=== PATIENT | male | born 1935 | race Caucasian/White ===

== ENCOUNTER 2021-09-24 07:12 | Inpatient (IN) | payer MEDICARE ==
[2021-09-24] VITALS (63 sets, daily range): BP systolic 86–141; BP diastolic 39–116
[~2021-09-24] VITALS: Ht 180.3 cm; Wt 85.0 kg
[~2021-09-24 07:12] MED LIST: ACETIC ACID2 % AD; AEROCHAMBER PLUS IN; ALBUTEROL1 IN; BACTRIM DS1 TAB OR; BENADRYL 50MG C50 MG OR; DARVOCET N-100100 - OR; KLOR-CON M1010 MEQ PO; LASIX20 MG PO; NAPROSYN500 MG OR; NEBULIZE1 IN; OMEPRAZOLE20 MG PO; PROVENTIL HFA IN; TRIAMCINOLON0.5 % EX; [UNRECOGNIZED DRUG - OTHER] EX
[2021-09-24 08:03] LABS: HEMATOCRIT 22.4 % (39.0-50.0); HEMOGLOBIN 7.5 g/dl (14.0-18.0); MEAN CELL VOLUME 131.8 fL CALC (80.0-100.0); MEAN CORPUSCULAR HGB 44.1 pG CALC (26.0-32.0); MEAN CORPUSCULAR HGB CONC 33.5 g/dL CAL (32.0-36.0); NEUT# 5.4 thou/uL (1.82-7.42); RED BLOOD COUNT 1.7 mill/uL (4.70-6.10); RED CELL DISTRI WIDTH 16.3 % (11.5-15.5)
[2021-09-24 08:08] LABS: URINE BLOOD DIPSTICK NEGATIVE (NEGATIVE); URINE COLOR YELLOW; URINE GLUCOSE - DIPSTICK NEGATIVE (NEGATIVE); URINE KETONE NEGATIVE (NEGATIVE); URINE LEUK ESTERASE NEGATIVE (NEGATIVE); URINE PROTEIN - DIPSTICK TRACE mg/dL (NEG-TRACE); URINE SPECIFIC GRAVITY 1.015
[2021-09-24 08:13] LABS: URINE BILIRUBIN - DIPSTICK SMALL (NEGATIVE); URINE NITRITE - DIPSTICK NEGATIVE (Negative)
[2021-09-24 08:27] LABS: ALBUMIN 3.3 g/dL (3.2-5.0); ALKALINE PHOSPHATASE 102 u/l (38-126); BUN 10 mg/dL (8-23); BUN/CREATININE RATIO 13 (12-20 (CALC)); CHLORIDE 99 mmol/l (95-108); CPK 29 u/l (52-200); CREATININE 0.8 mg/dL (0.7-1.3); GFR FOR AFR.AMER. > 60 ML/MIN (>=60 (CALC)); GFR OTHER RACES > 60 ML/MIN (>=60 (CALC)); LIPASE 39 u/l (23-300); MAGNESIUM 1.2 mg/dL (1.6-2.3); POTASSIUM 3.9 mmol/l (3.5-5.1); SGOT/AST 62 u/l (19-48); SODIUM 137 mmol/l (137-146); TOTAL PROTEIN 7.1 g/dL (6.3-8.2)
[2021-09-24 08:37] LABS: ANION GAP 21 (6-22 (CALC)); CARBON DIOXIDE 21 mmol/l (22-30)
[2021-09-24 08:42] LABS: INTERNATIONAL NORMALIZED RATIO 1.1 RATIO (0.7-1.3); PROTHROMBIN TIME 11.8 SECONDS (9.0-12.5)
[2021-09-24 13:51] LABS: URINE BILIRUBIN - DIPSTICK SMALL (NEGATIVE); URINE BLOOD DIPSTICK TRACE-INTACT (NEGATIVE); URINE CLARITY HAZY; URINE COLOR AMBER; URINE GLUCOSE - DIPSTICK NEGATIVE (NEGATIVE); URINE KETONE TRACE mg/dL (NEGATIVE); URINE LEUK ESTERASE NEGATIVE (Negative); URINE NITRITE - DIPSTICK POSITIVE (Negative); URINE PROTEIN - DIPSTICK 100 mg/dL (NEG-TRACE); URINE SPECIFIC GRAVITY >=1.030
[2021-09-24 13:57] LABS: URINE RBC 0-2 RBC/hpf (0-5)
[2021-09-24 13:58] LABS: URINE AMORPH SEDIMENT FEW hpf (NONE-FER)
[2021-09-25] VITALS (95 sets, daily range): BP systolic 98–144; BP diastolic 45–95
[2021-09-25 05:54] LABS: IMMATURE GRANULOCYTES 0.9 % (0.0-5.0); MEAN CELL VOLUME 130.4 fL CALC (80.0-100.0); MEAN CORPUSCULAR HGB 43.2 pG CALC (26.0-32.0); MEAN CORPUSCULAR HGB CONC 33.1 g/dL CAL (32.0-36.0); NEUT# 5.04 thou/uL (1.82-7.42); RED BLOOD COUNT 1.25 mill/uL (4.70-6.10); RED CELL DISTRI WIDTH 16.5 % (11.5-15.5)
[2021-09-25 05:57] LABS: ALKALINE PHOSPHATASE 63 u/l (38-126); BUN 12 mg/dL (8-23); BUN/CREATININE RATIO 20 (12-20 (CALC)); CHLORIDE 108 mmol/l (95-108); CREATININE 0.6 mg/dL (0.7-1.3); GFR FOR AFR.AMER. > 60 ML/MIN (>=60 (CALC)); GFR OTHER RACES > 60 ML/MIN (>=60 (CALC)); POTASSIUM 3.6 mmol/l (3.5-5.1); SGOT/AST 40 u/l (19-48); SODIUM 138 mmol/l (137-146)
[2021-09-25 06:03] LABS: ALBUMIN 2.2 g/dL (3.2-5.0); ANION GAP 8 (6-22 (CALC)); BILIRUBIN, TOTAL 0.9 mg/dL (0.0-1.4); CARBON DIOXIDE 26 mmol/l (22-30); TOTAL PROTEIN 5.2 g/dL (6.3-8.2)
[2021-09-25 06:42] LABS: HEMOGLOBIN 5.4 g/dl (14.0-18.0)
[2021-09-25 06:44] LABS: HEMATOCRIT 16.3 % (39.0-50.0)
[2021-09-25 16:56] LABS: HEMATOCRIT 22.3 % (39.0-50.0); HEMOGLOBIN 7.5 g/dl (14.0-18.0)
[2021-09-26] VITALS (79 sets, daily range): BP systolic 98–155; BP diastolic 47–89
[2021-09-26 05:30] LABS: HEMATOCRIT 22.9 % (39.0-50.0); HEMOGLOBIN 7.8 g/dl (14.0-18.0); MEAN CORPUSCULAR HGB 38.4 pG CALC (26.0-32.0); MEAN CORPUSCULAR HGB CONC 34.1 g/dL CAL (32.0-36.0); RED BLOOD COUNT 2.03 mill/uL (4.70-6.10)
[2021-09-26 05:31] LABS: MEAN CELL VOLUME 112.8 fL CALC (80.0-100.0)
[2021-09-26 05:36] LABS: ANION GAP 8 (6-22 (CALC)); BUN 11 mg/dL (8-23); BUN/CREATININE RATIO 24 (12-20 (CALC)); CARBON DIOXIDE 25 mmol/l (22-30); CHLORIDE 107 mmol/l (95-108); CREATININE 0.5 mg/dL (0.7-1.3); GFR FOR AFR.AMER. > 60 ML/MIN (>=60 (CALC)); GFR OTHER RACES > 60 ML/MIN (>=60 (CALC)); MAGNESIUM 1.8 mg/dL (1.6-2.3); POTASSIUM 3.6 mmol/l (3.5-5.1); SODIUM 136 mmol/l (137-146)
[2021-09-27] VITALS (36 sets, daily range): BP systolic 109–162; BP diastolic 55–109
[2021-09-27 05:03] LABS: HEMATOCRIT 20.6 % (39.0-50.0); MEAN CELL VOLUME 113.8 fL CALC (80.0-100.0); MEAN CORPUSCULAR HGB 38.7 pG CALC (26.0-32.0); RED BLOOD COUNT 1.81 mill/uL (4.70-6.10)
[2021-09-27 05:14] LABS: ANION GAP 8 (6-22 (CALC)); BUN 8 mg/dL (8-23); BUN/CREATININE RATIO 18 (12-20 (CALC)); CARBON DIOXIDE 24 mmol/l (22-30); CHLORIDE 107 mmol/l (95-108); CREATININE 0.4 mg/dL (0.7-1.3); GFR FOR AFR.AMER. > 60 ML/MIN (>=60 (CALC)); GFR OTHER RACES > 60 ML/MIN (>=60 (CALC)); MAGNESIUM 1.7 mg/dL (1.6-2.3); POTASSIUM 3.9 mmol/l (3.5-5.1); SODIUM 135 mmol/l (137-146)
[2021-09-28] VITALS: BP 137/78
[2021-09-28 00:15] VITALS: BP 137/78
[2021-09-28 04:03] VITALS: BP 140/80
[2021-09-28 05:32] LABS: HEMATOCRIT 21.8 % (39.0-50.0); HEMOGLOBIN 7.3 g/dl (14.0-18.0); MEAN CELL VOLUME 114.7 fL CALC (80.0-100.0); MEAN CORPUSCULAR HGB 38.4 pG CALC (26.0-32.0); MEAN CORPUSCULAR HGB CONC 33.5 g/dL CAL (32.0-36.0); RED BLOOD COUNT 1.9 mill/uL (4.70-6.10)
[2021-09-28 05:57] LABS: ANION GAP 9 (6-22 (CALC)); BUN 8 mg/dL (8-23); BUN/CREATININE RATIO 20 (12-20 (CALC)); CARBON DIOXIDE 25 mmol/l (22-30); CHLORIDE 107 mmol/l (95-108); CREATININE 0.4 mg/dL (0.7-1.3); GFR FOR AFR.AMER. > 60 ML/MIN (>=60 (CALC)); GFR OTHER RACES > 60 ML/MIN (>=60 (CALC)); MAGNESIUM 1.9 mg/dL (1.6-2.3); POTASSIUM 3.4 mmol/l (3.5-5.1); SODIUM 137 mmol/l (137-146)
[2021-09-28 07:18] VITALS: BP 121/68
[2021-09-28 10:27] VITALS: BP 146/49
[2021-09-28] MEDS ORDERED: AZITHROMYCIN500 MG PO (14:02)
[2021-09-28] MEDS ORDERED: MEDDOSEPAK PO (14:02)
[2021-09-28] MEDS ORDERED: OMNICEF300 M1 PO (14:02)
[2021-09-28] MEDS ORDERED: IRON (FERROUS S50 MG PO (14:04)
[2021-09-28 15:21] VITALS: BP 126/65
== END 2021-09-28 18:00 | DRG 194 ==
LOC: ED 07:12 → ED-I 08:50 → MS2 09:05 → ICU 09:05 → ED 09:05 → ICU 09:06 → MS2 09-27 18:04
PROVIDERS: Family Medicine; Hospitalist; ADMIT Internal Medicine; ATTEND Internal Medicine
PROC: 0T9B70Z Drainage of Bladder with Drainage Device, Via Natural or Artificial Opening (ICD-10-PCS; 2021-09-24)
PROC: 30233N1 Transfusion of Nonautologous Red Blood Cells into Peripheral Vein, Percutaneous Approach (ICD-10-PCS; principal; 2021-09-25)
PROC: 30233N1 Transfusion of Nonautologous Red Blood Cells into Peripheral Vein, Percutaneous Approach (ICD-10-PCS; 2021-09-25)
DX: J18.9 Pneumonia, unspecified organism (principal); J44.0 Chronic obstructive pulmonary disease with (acute) lower respiratory infection; J44.1 Chronic obstructive pulmonary disease with (acute) exacerbation; D64.9 Anemia, unspecified; I10 Essential (primary) hypertension; F10.20 Alcohol dependence, uncomplicated; F17.200 Nicotine dependence, unspecified, uncomplicated; Z91.81 History of falling; Z20.822 Contact with and (suspected) exposure to COVID-19
CPT/HCPCS: J1756; J3420; J3475; P9016; S0164

== ENCOUNTER 2021-09-30 19:58 | Emergency (ER) | payer MEDICARE ==
[~2021-09-30] VITALS: Ht 180.3 cm; Wt 90.9 kg
[~2021-09-30 19:58] MED LIST changes: +AZITHROMYCIN500 MG PO; +IRON (FERROUS S50 MG PO; +MEDDOSEPAK PO; +OMNICEF300 M1 PO
[2021-09-30 20:33] LABS: URINE BILIRUBIN - DIPSTICK NEGATIVE (NEGATIVE); URINE BLOOD DIPSTICK SMALL (NEGATIVE); URINE COLOR YELLOW; URINE GLUCOSE - DIPSTICK NEGATIVE (NEGATIVE); URINE KETONE NEGATIVE (NEGATIVE); URINE LEUK ESTERASE NEGATIVE (NEGATIVE); URINE PROTEIN - DIPSTICK NEGATIVE (NEG-TRACE); URINE SPECIFIC GRAVITY 1.015; URINE UROBILINOGEN - DIPSTICK 0.2 E.U./dL (0.2)
[2021-09-30 20:34] LABS: HEMATOCRIT 25.9 % (39.0-50.0); HEMOGLOBIN 8.2 g/dl (14.0-18.0); IMMATURE GRANULOCYTES 2.2 % (0.0-5.0); MEAN CELL VOLUME 116.1 fL CALC (80.0-100.0); MEAN CORPUSCULAR HGB 36.8 pG CALC (26.0-32.0); MEAN CORPUSCULAR HGB CONC 31.7 g/dL CAL (32.0-36.0); NEUT# 4.49 thou/uL (1.82-7.42); RED BLOOD COUNT 2.23 mill/uL (4.70-6.10); RED CELL DISTRI WIDTH 23.4 % (11.5-15.5)
[2021-09-30 20:41] LABS: URINE NITRITE - DIPSTICK NEGATIVE (Negative)
[2021-09-30 20:53] LABS: ALKALINE PHOSPHATASE 84 u/l (38-126); ANION GAP 12 (6-22 (CALC)); BILIRUBIN, TOTAL 0.7 mg/dL (0.0-1.4); BUN 6 mg/dL (8-23); BUN/CREATININE RATIO 11 (12-20 (CALC)); CARBON DIOXIDE 26 mmol/l (22-30); CHLORIDE 104 mmol/l (95-108); CREATININE 0.5 mg/dL (0.7-1.3); GFR FOR AFR.AMER. > 60 ML/MIN (>=60 (CALC)); GFR OTHER RACES > 60 ML/MIN (>=60 (CALC)); POTASSIUM 3.7 mmol/l (3.5-5.1); SODIUM 139 mmol/l (137-146)
[2021-09-30 20:54] LABS: ALBUMIN 3.3 g/dL (3.2-5.0); SGOT/AST 114 u/l (19-48); TOTAL PROTEIN 6.8 g/dL (6.3-8.2)
[2021-09-30 21:05] LABS: MYOGLOBIN 178 ng/mL (0 - 121)
[2021-09-30 21:42] VITALS: BP 154/85
== END 2021-09-30 22:00 | disposition home or self-care (01) ==
LOC: ED 19:58
PROVIDERS: Emergency Medicine
DX: R22.43 Localized swelling, mass and lump, lower limb, bilateral (principal); U07.1 COVID-19

== ENCOUNTER 2021-10-05 16:49 | Inpatient (IN) | payer MEDICARE ==
[2021-10-05] VITALS (10 sets, daily range): BP systolic 119–163; BP diastolic 72–88
[~2021-10-05] VITALS: Ht 180.3 cm; Wt 91.0 kg
[2021-10-05 17:39] LABS: HEMATOCRIT 29.1 % (39.0-50.0); HEMOGLOBIN 9.2 g/dl (14.0-18.0); IMMATURE GRANULOCYTES 0.3 % (0.0-5.0); MEAN CELL VOLUME 112.8 fL CALC (80.0-100.0); MEAN CORPUSCULAR HGB 35.7 pG CALC (26.0-32.0); MEAN CORPUSCULAR HGB CONC 31.6 g/dL CAL (32.0-36.0); NEUT# 6.42 thou/uL (1.82-7.42); RED BLOOD COUNT 2.58 mill/uL (4.70-6.10); RED CELL DISTRI WIDTH 20.7 % (11.5-15.5)
[2021-10-05 17:55] LABS: ALBUMIN 3.2 g/dL (3.2-5.0); ALKALINE PHOSPHATASE 84 u/l (38-126); ANION GAP 8 (6-22 (CALC)); BILIRUBIN, TOTAL 0.9 mg/dL (0.0-1.4); BUN 6 mg/dL (8-23); BUN/CREATININE RATIO 12 (12-20 (CALC)); CARBON DIOXIDE 27 mmol/l (22-30); CHLORIDE 96 mmol/l (95-108); CREATININE 0.5 mg/dL (0.7-1.3); GFR FOR AFR.AMER. > 60 ML/MIN (>=60 (CALC)); GFR OTHER RACES > 60 ML/MIN (>=60 (CALC)); SGOT/AST 68 u/l (19-48); TOTAL PROTEIN 6.8 g/dL (6.3-8.2)
[2021-10-05 17:56] LABS: SODIUM 127 mmol/l (137-146)
[2021-10-05 17:58] LABS: PROTHROMBIN TIME 10.5 SECONDS (9.0-12.5)
[2021-10-05 18:07] LABS: MYOGLOBIN 85 ng/mL (0 - 121)
[2021-10-05 20:19] LABS: URINE BILIRUBIN - DIPSTICK NEGATIVE (NEGATIVE); URINE BLOOD DIPSTICK NEGATIVE (NEGATIVE); URINE COLOR YELLOW; URINE GLUCOSE - DIPSTICK NEGATIVE (NEGATIVE); URINE KETONE NEGATIVE (NEGATIVE); URINE LEUK ESTERASE TRACE (NEGATIVE); URINE PROTEIN - DIPSTICK NEGATIVE (NEG-TRACE); URINE SPECIFIC GRAVITY 1.025; URINE UROBILINOGEN - DIPSTICK 0.2 E.U./dL (0.2)
[2021-10-05 20:24] LABS: URINE NITRITE - DIPSTICK NEGATIVE (Negative)
[2021-10-06] VITALS (11 sets, daily range): BP systolic 129–170; BP diastolic 65–107
[2021-10-06 05:32] LABS: HEMATOCRIT 32.7 % (39.0-50.0); HEMOGLOBIN 10.2 g/dl (14.0-18.0); IMMATURE GRANULOCYTES 1.1 % (0.0-5.0); MEAN CELL VOLUME 115.5 fL CALC (80.0-100.0); MEAN CORPUSCULAR HGB CONC 31.2 g/dL CAL (32.0-36.0); NEUT# 3.9 thou/uL (1.82-7.42); RED BLOOD COUNT 2.83 mill/uL (4.70-6.10); RED CELL DISTRI WIDTH 20.9 % (11.5-15.5)
[2021-10-06 05:38] LABS: ANION GAP 10 (6-22 (CALC)); BUN 6 mg/dL (8-23); BUN/CREATININE RATIO 15 (12-20 (CALC)); CALCULATED LDLCHOLESTEROL 65 mg/dL (62-129 (CALC)); CARBON DIOXIDE 24 mmol/l (22-30); CHLORIDE 101 mmol/l (95-108); CHOLESTEROL HDL RATIO 2.9 (<4.4 (CALC)); CREATININE 0.4 mg/dL (0.7-1.3); GFR FOR AFR.AMER. > 60 ML/MIN (>=60 (CALC)); GFR OTHER RACES > 60 ML/MIN (>=60 (CALC)); HDL CHOLESTEROL 41 mg/dL (>=40); MAGNESIUM 1.8 mg/dL (1.6-2.3); POTASSIUM 3.9 mmol/l (3.5-5.1); SODIUM 131 mmol/l (137-146); TOTAL CHOLESTEROL 122 mg/dl (0-199); TOTAL TRIGLYCERIDES 77 mg/dl (30-149); VLDL CHOLESTROL 15 mg/dl (0-38 (CALC))
[2021-10-06] MEDS ORDERED: OMNICEF300 MG PO (12:24)
[2021-10-07] VITALS (7 sets, daily range): BP systolic 133–153; BP diastolic 68–83
[2021-10-07 05:57] LABS: HEMATOCRIT 29.4 % (39.0-50.0); HEMOGLOBIN 9.3 g/dl (14.0-18.0); IMMATURE GRANULOCYTES 0.3 % (0.0-5.0); MEAN CELL VOLUME 112.2 fL CALC (80.0-100.0); MEAN CORPUSCULAR HGB 35.5 pG CALC (26.0-32.0); MEAN CORPUSCULAR HGB CONC 31.6 g/dL CAL (32.0-36.0); NEUT# 4.36 thou/uL (1.82-7.42); RED BLOOD COUNT 2.62 mill/uL (4.70-6.10); RED CELL DISTRI WIDTH 20.2 % (11.5-15.5)
[2021-10-07 06:10] LABS: ALBUMIN 2.7 g/dL (3.2-5.0); ALKALINE PHOSPHATASE 71 u/l (38-126); ANION GAP 8 (6-22 (CALC)); BILIRUBIN, TOTAL 0.5 mg/dL (0.0-1.4); BUN 8 mg/dL (8-23); BUN/CREATININE RATIO 18 (12-20 (CALC)); CARBON DIOXIDE 28 mmol/l (22-30); CHLORIDE 101 mmol/l (95-108); CREATININE 0.5 mg/dL (0.7-1.3); GFR FOR AFR.AMER. > 60 ML/MIN (>=60 (CALC)); GFR OTHER RACES > 60 ML/MIN (>=60 (CALC)); MAGNESIUM 1.7 mg/dL (1.6-2.3); POTASSIUM 3.6 mmol/l (3.5-5.1); SGOT/AST 48 u/l (19-48); SODIUM 134 mmol/l (137-146)
[2021-10-08 03:49] VITALS: BP 163/87
[2021-10-08 06:00] LABS: HEMATOCRIT 31.6 % (39.0-50.0); IMMATURE GRANULOCYTES 0.4 % (0.0-5.0); MEAN CELL VOLUME 112.9 fL CALC (80.0-100.0); MEAN CORPUSCULAR HGB 35.7 pG CALC (26.0-32.0); MEAN CORPUSCULAR HGB CONC 31.6 g/dL CAL (32.0-36.0); NEUT# 3.52 thou/uL (1.82-7.42); RED BLOOD COUNT 2.8 mill/uL (4.70-6.10); RED CELL DISTRI WIDTH 19.7 % (11.5-15.5)
[2021-10-08 06:18] LABS: ALBUMIN 2.7 g/dL (3.2-5.0); ALKALINE PHOSPHATASE 69 u/l (38-126); ANION GAP 7 (6-22 (CALC)); BILIRUBIN, TOTAL 0.5 mg/dL (0.0-1.4); BUN 6 mg/dL (8-23); BUN/CREATININE RATIO 12 (12-20 (CALC)); CARBON DIOXIDE 28 mmol/l (22-30); CHLORIDE 102 mmol/l (95-108); CREATININE 0.5 mg/dL (0.7-1.3); GFR FOR AFR.AMER. > 60 ML/MIN (>=60 (CALC)); GFR OTHER RACES > 60 ML/MIN (>=60 (CALC)); MAGNESIUM 1.6 mg/dL (1.6-2.3); POTASSIUM 3.8 mmol/l (3.5-5.1); SGOT/AST 61 u/l (19-48); SODIUM 134 mmol/l (137-146); TOTAL PROTEIN 5.9 g/dL (6.3-8.2)
[2021-10-08 07:10] VITALS: BP 140/79
[2021-10-08 14:03] VITALS: BP 140/79
[2021-10-08 18:58] VITALS: BP 136/80
[2021-10-08 23:16] VITALS: BP 141/75
[2021-10-09 04:05] VITALS: BP 165/91
[2021-10-09 05:11] LABS: HEMATOCRIT 30.6 % (39.0-50.0); HEMOGLOBIN 9.6 g/dl (14.0-18.0); IMMATURE GRANULOCYTES 0.2 % (0.0-5.0); MEAN CELL VOLUME 111.3 fL CALC (80.0-100.0); MEAN CORPUSCULAR HGB 34.9 pG CALC (26.0-32.0); MEAN CORPUSCULAR HGB CONC 31.4 g/dL CAL (32.0-36.0); NEUT# 3.05 thou/uL (1.82-7.42); RED BLOOD COUNT 2.75 mill/uL (4.70-6.10); RED CELL DISTRI WIDTH 19.4 % (11.5-15.5)
[2021-10-09 05:31] LABS: ANION GAP 6 (6-22 (CALC)); BUN 6 mg/dL (8-23); BUN/CREATININE RATIO 11 (12-20 (CALC)); CARBON DIOXIDE 30 mmol/l (22-30); CHLORIDE 100 mmol/l (95-108); CREATININE 0.5 mg/dL (0.7-1.3); GFR FOR AFR.AMER. > 60 ML/MIN (>=60 (CALC)); GFR OTHER RACES > 60 ML/MIN (>=60 (CALC)); MAGNESIUM 1.5 mg/dL (1.6-2.3); POTASSIUM 3.8 mmol/l (3.5-5.1); SODIUM 132 mmol/l (137-146)
[2021-10-09 06:28] VITALS: BP 158/89
[2021-10-09 08:00] VITALS: BP 158/89
[2021-10-09] MEDS ORDERED: DOXYCYCLINE100 MG PO (09:09)
[2021-10-09 16:28] VITALS: BP 158/89
[2021-10-13] MEDS ORDERED: LASIX20 MG PO (11:59)
[2021-10-13] MEDS ORDERED: KLOR-CON M1010 MEQ PO (11:59)
== END 2021-10-09 17:24 | disposition home health service (06) | DRG 190 ==
LOC: ED 16:49 → MS2 19:45
PROVIDERS: Internal Medicine; Nurse Practitioner; ADMIT Internal Medicine; ATTEND Internal Medicine
DX: J43.9 Emphysema, unspecified (principal); J15.9 Unspecified bacterial pneumonia; U07.1 COVID-19; J12.82 Pneumonia due to coronavirus disease 2019; E87.1 Hypo-osmolality and hyponatremia; R09.02 Hypoxemia; R19.5 Other fecal abnormalities; D64.9 Anemia, unspecified; F10.20 Alcohol dependence, uncomplicated; R60.9 Edema, unspecified; F17.200 Nicotine dependence, unspecified, uncomplicated; Z87.01 Personal history of pneumonia (recurrent)
CPT/HCPCS: J1650; Q9967; S0164

== ENCOUNTER 2021-11-16 19:25 | Emergency (ER) | payer MEDICARE ==
[~2021-11-16] VITALS: Ht 180.3 cm; Wt 79.0 kg
[2021-11-16] VITALS (16 sets, daily range): BP systolic 135–160; BP diastolic 77–94
[~2021-11-16 19:25] MED LIST changes: +DOXYCYCLINE100 MG PO; +OMNICEF300 MG PO; +SPIRIVA HANDIHALER IN
[2021-11-16 20:00] LABS: HEMATOCRIT 38.1 % (39.0-50.0); HEMOGLOBIN 11.6 g/dl (14.0-18.0); IMMATURE GRANULOCYTES 0.2 % (0.0-5.0); MEAN CELL VOLUME 100.3 fL CALC (80.0-100.0); MEAN CORPUSCULAR HGB 30.5 pG CALC (26.0-32.0); MEAN CORPUSCULAR HGB CONC 30.4 g/dL CAL (32.0-36.0); NEUT# 2.61 thou/uL (1.82-7.42); RED BLOOD COUNT 3.8 mill/uL (4.70-6.10); RED CELL DISTRI WIDTH 15.2 % (11.5-15.5)
[2021-11-16 20:12] LABS: ALBUMIN 3.1 g/dL (3.2-5.0); ALKALINE PHOSPHATASE 99 u/l (38-126); ANION GAP 8 (6-22 (CALC)); BILIRUBIN, TOTAL 0.4 mg/dL (0.0-1.4); BUN 10 mg/dL (8-23); BUN/CREATININE RATIO 15 (12-20 (CALC)); CARBON DIOXIDE 29 mmol/l (22-30); CHLORIDE 107 mmol/l (95-108); CPK < 20 u/l (52-200); CREATININE 0.7 mg/dL (0.7-1.3); GFR FOR AFR.AMER. > 60 ML/MIN (>=60 (CALC)); GFR OTHER RACES > 60 ML/MIN (>=60 (CALC)); POTASSIUM 3.9 mmol/l (3.5-5.1); SGOT/AST 37 u/l (19-48); SODIUM 139 mmol/l (137-146); TOTAL PROTEIN 6.6 g/dL (6.3-8.2)
[2021-11-17] VITALS: BP 148/81
[2021-11-17 00:17] VITALS: BP 194/152
[2021-11-17 00:31] VITALS: BP 159/97
[2021-11-17 01:13] VITALS: BP 159/97
== END 2021-11-17 00:52 | disposition short-term general hospital (02) ==
LOC: ED 19:25
PROVIDERS: Family Medicine
DX: S72.001A Fracture of unspecified part of neck of right femur, initial encounter for closed fracture (principal); S51.012A Laceration without foreign body of left elbow, initial encounter; J44.9 Chronic obstructive pulmonary disease, unspecified; F17.200 Nicotine dependence, unspecified, uncomplicated; W01.0XXA Fall on same level from slipping, tripping and stumbling without subsequent striking against object, initial encounter; Z20.822 Contact with and (suspected) exposure to COVID-19

== ENCOUNTER 2022-12-25 09:58 | Observation (INO) | payer MEDICARE ==
[~2022-12-25] VITALS: Ht 182.9 cm; Wt 76.3 kg
[~2022-12-25 09:58] MED LIST changes: +BETAMETH DIP0.053 EX; +IRON325 M1 PO; +PERCOCET 5/321 COMBO PO; +PREDNISONE10 MG PO; +[UNRECOGNIZED DRUG - OTHER] TOP
--- NOTE | 2022-12-25 09:58 | NUR ---
PT NEEDED ASSISTANCE OUT OF CAR, WHEELED BACK TO ER ROOM 15 VIA WHEELCHAIR
[2022-12-25 10:32] LABS: BASO% 0.3 % (0-3); EOS% 1.5 % (0-8); HEMATOCRIT 51.4 % (39.0-50.0); IMMATURE GRANULOCYTES 0.3 % (0.0-5.0); LYMPH% 21.1 % (15-41); MEAN CELL VOLUME 103.2 fL CALC (80.0-100.0); MEAN CORPUSCULAR HGB 36.1 pG CALC (26.0-32.0); MONO% 10.9 % (2-13); NEUT# 4.92 thou/uL (1.82-7.42); NEUT% 65.9 % (42-76); RED BLOOD COUNT 4.98 mill/uL (4.70-6.10); RED CELL DISTRI WIDTH 13.7 % (11.5-15.5)
[2022-12-25 10:44] LABS: ALKALINE PHOSPHATASE 83 u/l (38-126); ANION GAP 13 (6-22 (CALC)); BUN 13 mg/dL (8-23); BUN/CREATININE RATIO 14 (12-20 (CALC)); CARBON DIOXIDE 33 mmol/l (22-30); CHLORIDE 96 mmol/l (95-108); CREATININE 0.9 mg/dL (0.7-1.3); GFR FOR AFR.AMER. > 60 ML/MIN (>=60 (CALC)); GFR OTHER RACES > 60 ML/MIN (>=60 (CALC)); POTASSIUM 4.4 mmol/l (3.5-5.1); SGOT/AST 32 u/l (19-48); SODIUM 138 mmol/l (137-146)
[2022-12-25 10:47] LABS: ALBUMIN 4.5 g/dL (3.2-5.0); BILIRUBIN, TOTAL 1.9 mg/dL (0.2-1.3); TOTAL PROTEIN 9.1 g/dL (6.3-8.2)
--- NOTE | 2022-12-25 11:00 | NUR ---
IN ROOM FOR BLODD DRAW 2ND BC, CHARLIE NOTED, VSS, PT WATCHING TV AND HAS NO COMPLAINTS AT THIS TIME, CALL LIGHT IN REACH.
--- NOTE | 2022-12-25 12:00 | NUR ---
Reassessment of patient completed. No distress noted. PT SITTING UP IN BED WATCHING TV, NO COMPLAINTS, GIVEN MEAL TRAY, PT DECLINED AT THIS TIME LEFT TRAY AT BEDSIDE, ROCEPHIN I/V FINISHED, ZITHROMAX I/V STARTED, CALL LIGHT IN REACH.
--- NOTE | 2022-12-25 13:00 | NUR ---
Reassessment of patient completed. No distress noted. VSS, NO COMPLAINTS AT THIS TIME, WATCHING TV, CALL LIGHT IN REACH.
--- NOTE | 2022-12-25 14:19 | NUR ---
report to maikel liu.
--- NOTE | 2022-12-25 14:30 | NUR ---
PT TO [facility] ROOM 290 VIA STRETCHER, ON TELE # 8, ALL BELONGINGS SENT WITH PT AT TIME OF TRANSFER, FEMALE FRIEND AT BEDSIDE.
--- NOTE | 2022-12-25 14:45 | NUR ---
PT TO MED SURG FROM ER, REPORT RECIEVED FROM NURSE. PT ALERT AND ORIENTED X 3, PT HAS NO C/O PAIN AT THIS TIME. LUNGS WITH WHEEZING THROUGHOUT,PT HAS NON PRODUCTIVE COUGH AND SOME SHORTNESS OF BREATH AND LABORED BREATHING. PT WEARING O2 @ 2 LITERS VIA NC AND SATS @98%. PT ABD DISTENDED WITH ACTIVE BS STATES HIS LAST BM WAS 2 DAYS JAEL AND REPORTS THIS IS NORMAL FOR HIM. PT HAS SCALY, RED PATCHY SKIN TO BLE, BILAT HANDS, RIGHT HIP, ELBOWS AND LEFT LEG. PT AMBULATES WITH ONE ASSIST TO THE BATHROOM FOR TOILETING NEEDS. PT HAS CALL LIGHT WITHIN REACH AND ALL SAFETY MEASURES IN PLACE AT THIS TIME.
[2022-12-25 14:59] VITALS: BP 165/87
[2022-12-25 20:16] VITALS: BP 146/78
--- NOTE | 2022-12-25 20:30 | NUR ---
PTIENT SITTING UP IN BED AT THIS TIME WITH VISITOR AT BEDSIDE. PATIENT IS AWAKE WITH FRFEQUENT LOOSE NON-PRODUCTIVE COUGH. PATIENT IS AWAKE ALERT AND ORIENTEDX3. O2 VIA NASAL CANNULA APPLIED. LUNGS ARE DIMINISHED THROUGHOUT. TELE MONITOR IN PLACE WITH LAST READING SR-92. PATIENT C/O BACK AND CHEST PAIN JUWAN WHEN HE IS COUGHING. PATIENT ALSO STATES THAT HE IS HAVING LOOSE BLACK STOOLS. CALL PLACED TO DR. GONZALES-NEW ORDERS RECEIVED. PATIENT HAD MODERATE AMT OF BLACKISH/GREEN LIQUID STOOL. STOOL SPEC OBTAINED TO LAB AND WAS POSITIVE. STAT CBC AND CHEM PROFILE DRAWN. IVF NS HUNG AND INFUSING AT 100CC/HR. PROTONIX GTT HUNG AND INFUSING ORDERED AT 10CC/HR. BOTH INFUSING VIA LAC SITE.DENIES ANY DIFFICULTY WITH URINATION. NO PERIPHERAL EDEMA NOTED.
[2022-12-25 20:33] LABS: BASO% 0.1 % (0-3); HEMATOCRIT 48.3 % (39.0-50.0); IMMATURE GRANULOCYTES 0.2 % (0.0-5.0); LYMPH% 3.7 % (15-41); MEAN CELL VOLUME 101.9 fL CALC (80.0-100.0); MEAN CORPUSCULAR HGB 33.8 pG CALC (26.0-32.0); MEAN CORPUSCULAR HGB CONC 33.1 g/dL CAL (32.0-36.0); MONO% 1.8 % (2-13); NEUT# 8.9 thou/uL (1.82-7.42); NEUT% 94.2 % (42-76); RED BLOOD COUNT 4.74 mill/uL (4.70-6.10); RED CELL DISTRI WIDTH 13.4 % (11.5-15.5)
[2022-12-25 21:01] LABS: ALBUMIN 3.7 g/dL (3.2-5.0); ALKALINE PHOSPHATASE 112 u/l (38-126); ANION GAP 14 (6-22 (CALC)); BILIRUBIN, TOTAL 1.2 mg/dL (0.2-1.3); BUN 20 mg/dL (8-23); BUN/CREATININE RATIO 20 (12-20 (CALC)); CARBON DIOXIDE 25 mmol/l (22-30); CHLORIDE 99 mmol/l (95-108); GFR FOR AFR.AMER. > 60 ML/MIN (>=60 (CALC)); GFR OTHER RACES > 60 ML/MIN (>=60 (CALC)); POTASSIUM 4.4 mmol/l (3.5-5.1); SGOT/AST 31 u/l (19-48); SODIUM 134 mmol/l (137-146); TOTAL PROTEIN 7.3 g/dL (6.3-8.2)
--- NOTE | 2022-12-25 21:30 | NUR ---
PATIENT RESTING IN BED. MEDICATED FOR PAIN WITH TRAMADOL 50MG PO WITH SIP OF H2O. NICOTENE TRANSDERMAL PATCH APPLIED TO RIGHT UPPER ARM. PATIENT IS NOW NPO. BED ALARM IN PLACE FOR PATIENT SAFETY. CALL LIGHT IN REACH. WILL CONT TO MONITOR.
[2022-12-26] VITALS (7 sets, daily range): BP systolic 113–146; BP diastolic 51–76
--- NOTE | 2022-12-26 00:31 | NUR ---
PATIENT RESTING IN BED AT THIS TIME WITH O2 VIA NASAL CANNULA IN PLACE AT 2LPM. EYES ARE CLOSED AND RESPS ARE EVEN AND UNLABORED. IVF NS PATENT AND INFUSING VIA LAC SITE AT 100CC/HR. PROTONIX GTT PATENT AND INFUSING AT 10CC/HR VIA LAC SITE. TELE MONITOR IN PLACE. CALL LIGHT IN REACH. WILL CONT TO MONITOR.
--- NOTE | 2022-12-26 02:09 | NUR ---
PATIENT RESING IN BED WITH HOB ELEVATED AND EYES CLOSED. O2 VIA NASAL CANNULA IN PLACE. BREATHING IS LESS LABORED AT THIS TIME. IVF NS PATENT AND INFUSING AT 100CC/HR. PROTONIX GTT PATENT AND INFUSING AT 10CC/HR. TELE MONITOR IN PLACE. BED ALARM IN PLACE FOR PATIENT SAFETY. CALL LIGHT IN REACH, WILL CONT TO MONITOR.
--- NOTE | 2022-12-26 04:34 | NUR ---
PATIENT BED ALRM GOING OFF-RESPONDED TO THE ROOM AND FOUND PATIENT SITTING ON THE SIDE OF THE BED. ALERT AND ORIENTEDX3. PATIENT STILL UNSTEADY ON HIS FEET. ASSIST TO STAND AND URINATE 125CC OF DARK VASYL URINE. ASSISTED BACK TO BED. PATIENT CONT TO HAVE LOOSE NON-PRODUCTIVE COUGH. O2 VIA NASAL CANNULA INPLACE. IVF NS PATENT AND INFUSING AT 100CC/HR AND PROTONMIX GTT INFUSING AT 10CC/HR VIA LAC SITE. TELE MONITOR IN PLACE. REMAINS NPO ORDERED. NO BM'S SINCE LAST NIGHT. BED ALARM RESET. SAFETY PRECAUTIONS REINFORCED. CALL LIGHT IN REACH. WILL CONT TO MONITOR.
[2022-12-26 06:44] LABS: HEMATOCRIT 45.6 % (39.0-50.0); HEMOGLOBIN 14.8 g/dl (14.0-18.0); MEAN CELL VOLUME 103.4 fL CALC (80.0-100.0); MEAN CORPUSCULAR HGB 33.6 pG CALC (26.0-32.0); MEAN CORPUSCULAR HGB CONC 32.5 g/dL CAL (32.0-36.0); RED BLOOD COUNT 4.41 mill/uL (4.70-6.10); RED CELL DISTRI WIDTH 13.5 % (11.5-15.5)
[2022-12-26 07:11] LABS: ANION GAP 12 (6-22 (CALC)); BUN 17 mg/dL (8-23); BUN/CREATININE RATIO 24 (12-20 (CALC)); CARBON DIOXIDE 25 mmol/l (22-30); CHLORIDE 101 mmol/l (95-108); CHOLESTEROL HDL RATIO 2.8 (<4.4 (CALC)); CREATININE 0.7 mg/dL (0.7-1.3); GFR FOR AFR.AMER. > 60 ML/MIN (>=60 (CALC)); GFR OTHER RACES > 60 ML/MIN (>=60 (CALC)); HDL CHOLESTEROL 60 mg/dL (39.0-59.0); POTASSIUM 4.5 mmol/l (3.5-5.1); SODIUM 134 mmol/l (137-146); TOTAL TRIGLYCERIDES 57 mg/dl (0-149); VLDL CHOLESTROL 11 mg/dl (0-38 (CALC))
[2022-12-26 07:14] LABS: CALCULATED LDLCHOLESTEROL 97 mg/dL (62-129 (CALC)); MAGNESIUM 1.9 mg/dL (1.6-2.3); TOTAL CHOLESTEROL 168 mg/dl (0-199)
--- NOTE | 2022-12-26 08:00 | NUR ---
PT IN BED WITH HOB, ALERT AND ORIENTED X3. PT HAS NO C/O PAIN AT THIS TIME. PT HAS TELE ON WITH ALL LEADS ATTACHED. IV SITE TO LAC CLEAN AND INTACT WITH NS @ 125 ML/ HR INFUSING ALONG WITH PROTONIX DRIP. IV # 22 STARTED TO RAC FOR ANTIBIOTICS. PT LUNG SOUNDS COARSE. ABD SOFT WITH ACTIVE BS. PT AMBULATES TO BATHROOM WITH ONE ASSIST. CALL LIGHT WITHIN REACAH AND ALL SAFETY MEASURES IN PLACE AT THIS TIME.
--- NOTE | 2022-12-26 12:00 | NUR ---
PT IN BED WITH HOB UP, PT HAS NO C/O PAIN AT THIS TIME. PT HAS NO CHANGE IN STATUS AT THIS TIME. PT HAS CALLL LIGHT WITHIN REACH AND BED ALARM ON.
--- NOTE | 2022-12-26 16:00 | NUR ---
PT IN BED WITH HOB UP , ALERT AND ORIENTED X3. PT HAS NO C/O PAIN AT THIS TIME. PT HAS CALL LIGHT WITHIN REACH AND ALL SAFETY MEASURES IN PLACE AT THIS TIME.
--- NOTE | 2022-12-26 20:00 | NUR ---
PATIENT SITTING UP IN THE BED WITH GIRLFRIEND VISITING AT BEDSIDE. PATIENT IS AWAKE ALERT AND ORIENTEDX3. PATIENT CONT TO HAVE LOOSE NON-PRODUCTIVE COUGH. STILL HAVING PAIN WITH COUGH BUT DECLINES PAIN MEDS AT THIS TIME, LUNGS ARE DIMINISHED WITH WHEEZING THOUGHOUT. ABD IS SOFT WITH ACTIVE BS-NO BM TODAY-INSTRUCTED PATIENT TO CALL IF HE HAS ANY BM TONIGHT. ALSO NEED URINE SPEC WEHN HE IS ABLE TO PROVIDE. VERBALIZES UNDERSTANDING. STILL WITH RED RASH TO RIGHT HAND AND RIGHT HIP. NO PERIPHERAL EDEMA NOTED. IVF NS PATENT AND INFUSING VIA LAC SITE AT 100CC/HR-STILL WITH GOOD BLOOD RETURN. SALINE LOCK TO RAC. BED ALARM IN PLACE FOR PATIENT SAFETY. SAFETY PRECAUTIONS REINFORCED. CALL LIGHT IN REACH. WILL CONT TO MONITOR.
[2022-12-26 21:10] LABS: URINE BILIRUBIN - DIPSTICK Negative (NEGATIVE); URINE BLOOD DIPSTICK Negative (NEGATIVE); URINE GLUCOSE - DIPSTICK Negative (NEGATIVE); URINE KETONE Negative (NEGATIVE); URINE LEUK ESTERASE Negative (NEGATIVE); URINE NITRITE - DIPSTICK Negative (Negative); URINE PH 6.5 (4.5-8.0); URINE PROTEIN - DIPSTICK Negative (NEG-TRACE); URINE UROBILINOGEN - DIPSTICK 0.2 E.U./dL (0.2)
[2022-12-26 21:11] LABS: URINE COLOR Yellow
[2022-12-27 00:33] VITALS: BP 149/73
--- NOTE | 2022-12-27 00:47 | NUR ---
BED ALARM GOING OFF AND PATIENT FOUND STANDING AT SIDE OF THE BED USING HIS URINAL. PATIENT IS VERY UNSTEADY ON HIS FEET. SAFETY PRECAUTIONS REINFORCED. PATIENT CONT TO HAVE BACK PAIN-10/30. MEDICATED WITH TRAMADOL 50MG PO FOR PAIN AND WITH LIBRIUM FOR ANXIETY AND SLEEP. IVF PATENT AND INFUSING VIA LAC SITE AT 100CC/.HR. TELE MONITOR IN PLACE. BED ALARM IN PLACE FOR PATIENT SAFETY. CALL LIGHT IN REACH. WILL CONT TO MONITOR.
--- NOTE | 2022-12-27 04:00 | NUR ---
PATIENT RESTING IN BED AT THIS TIME WITH EYES CLOSED AND RESPS EVEN AND UNLABORED. IVF PATENT AND INFUSING VIA LAC SITE AT 100CC/HR. TELE MONITOR IN PLACE WITH LAST READING SR-82. CALL LIGHT IN REACH. WILL CONT TO MONITOR.
[2022-12-27 04:38] VITALS: BP 139/79
[2022-12-27 07:13] VITALS: BP 131/62
--- NOTE | 2022-12-27 07:30 | NUR ---
PT RESTING IN SEMI FOWLERS POSITION.A/OX3 HEART RHYTHM ON TELE. RESPIRAITONS ON ROOM AIR. IV SITE NOTED.PT DENIES ADDITIONAL NEEDS AT THE TIME ALL SAFETY PRECAUTIONS IN PLACE WITH CALL LIGHT IN REACH.
[2022-12-27 08:21] LABS: HEMATOCRIT 48.7 % (39.0-50.0); IMMATURE GRANULOCYTES 0.2 % (0.0-5.0); LYMPH% 4.1 % (15-41); MEAN CELL VOLUME 103.8 fL CALC (80.0-100.0); MEAN CORPUSCULAR HGB 34.1 pG CALC (26.0-32.0); MEAN CORPUSCULAR HGB CONC 32.9 g/dL CAL (32.0-36.0); MONO% 3.4 % (2-13); NEUT# 9.83 thou/uL (1.82-7.42); NEUT% 92.3 % (42-76); RED BLOOD COUNT 4.69 mill/uL (4.70-6.10); RED CELL DISTRI WIDTH 13.9 % (11.5-15.5)
[2022-12-27 08:37] LABS: ALBUMIN 3.5 g/dL (3.2-5.0); ALKALINE PHOSPHATASE 75 u/l (38-126); ANION GAP 11 (6-22 (CALC)); BILIRUBIN, TOTAL 0.7 mg/dL (0.2-1.3); BUN 14 mg/dL (8-23); BUN/CREATININE RATIO 22 (12-20 (CALC)); CARBON DIOXIDE 26 mmol/l (22-30); CHLORIDE 103 mmol/l (95-108); CREATININE 0.6 mg/dL (0.7-1.3); GFR FOR AFR.AMER. > 60 ML/MIN (>=60 (CALC)); GFR OTHER RACES > 60 ML/MIN (>=60 (CALC)); MAGNESIUM 1.9 mg/dL (1.6-2.3); POTASSIUM 4.3 mmol/l (3.5-5.1); SGOT/AST 33 u/l (19-48); SODIUM 136 mmol/l (137-146); TOTAL PROTEIN 6.9 g/dL (6.3-8.2)
[2022-12-27 11:04] VITALS: BP 128/66
--- NOTE | 2022-12-27 12:09 | NUR ---
PT RESTING IN SEMI FOWLERS POSITION. PT DENIES ADDITIONAL NEEDS AT THE TIME. ALL SAFETY PRECAUTIONS IN PLACE WITH CALL LIGHT IN REACH.
--- NOTE | 2022-12-27 16:20 | NUR ---
PT RESTING IN SEMI FOWLERS POSITION. PT STATED POSSIBLE DC TOMORROW. PT DENIES ADDITIONAL NEEDS AT THE TIME ALL SAFETY PRECAUTIONS IN PLACE WITH CALL LIGHT IN REACH.
[2022-12-27 17:08] VITALS: BP 155/79
[2022-12-27 19:26] VITALS: BP 139/70
--- NOTE | 2022-12-27 20:00 | NUR ---
RECEIVED REPORT FROM NURSE YOUSUF, PATIENT ALERT ORIENTED, ABLE TO MAKE NEEDS KNONW ON O2 @ 2LPM VIA NC, BREATHING UNLABORED, IV ON LAC G 20 NS @ 100CC/HR INFUSING WELL, G 22 ON RAC PATENT FLUSHES WELL, HOOKED ON TELEMETRY, CIWA SCORE 2, PATINET USES URINAL TO VOID, C/O LOW BACK PAIN PRM TRAMADOL GIVEN CALL LIGHT IN REACH.
--- NOTE | 2022-12-28 | NUR ---
PATIENT C/O LOW BACK PAIN PRN TYLENOL GIVE, CALL LIGHT IN REACH.
[2022-12-28 00:18] VITALS: BP 155/86
--- NOTE | 2022-12-28 04:18 | NUR ---
PATIENT RESTING IN BED, REMAINS ON O2 NOT IN DISTRESS, CALL LIGHT IN REACH
[2022-12-28 04:40] VITALS: BP 163/82
--- NOTE | 2022-12-28 04:49 | NUR ---
TOTRATED O2 TO 1LPM SPO2 AT 96% ON 1LPM
[2022-12-28 05:22] LABS: HEMOGLOBIN 15.1 g/dl (14.0-18.0); IMMATURE GRANULOCYTES 0.4 % (0.0-5.0); MEAN CELL VOLUME 103.6 fL CALC (80.0-100.0); MEAN CORPUSCULAR HGB CONC 32.8 g/dL CAL (32.0-36.0); MONO% 4.7 % (2-13); NEUT# 7.7 thou/uL (1.82-7.42); NEUT% 89.9 % (42-76); RED BLOOD COUNT 4.44 mill/uL (4.70-6.10); RED CELL DISTRI WIDTH 13.7 % (11.5-15.5)
[2022-12-28 05:41] LABS: ALBUMIN 3.4 g/dL (3.2-5.0); ALKALINE PHOSPHATASE 66 u/l (38-126); ANION GAP 9 (6-22 (CALC)); BILIRUBIN, TOTAL 0.6 mg/dL (0.2-1.3); BUN 17 mg/dL (8-23); BUN/CREATININE RATIO 23 (12-20 (CALC)); CARBON DIOXIDE 26 mmol/l (22-30); CHLORIDE 104 mmol/l (95-108); CREATININE 0.7 mg/dL (0.7-1.3); GFR FOR AFR.AMER. > 60 ML/MIN (>=60 (CALC)); GFR OTHER RACES > 60 ML/MIN (>=60 (CALC)); SGOT/AST 35 u/l (19-48); SODIUM 135 mmol/l (137-146); TOTAL PROTEIN 6.6 g/dL (6.3-8.2)
[2022-12-28 06:20] VITALS: BP 163/88
--- NOTE | 2022-12-28 07:00 | NUR ---
REPORT RECEIVED FROM PRIMITIVO DEE
--- NOTE | 2022-12-28 08:10 | NUR ---
PT RESTING IN SEMI FOWLERS POSITION,A&O X3;ASSESSMENT COMPLETED;PT DENIES ANY CURRENT PAIN OR DISCOMFORTS,PAIN SCALE AND REPORTING EDUCATED;RESPIRATIONS EVEN AND UNLABORED ON O2 @ 1L VIA NC- PT IS NOT HOME OXYGEN DEPENDENT;ABDOMEN SOFT ON PALPATION AND ACTIVE IN ALL 4 QUADRANTS;STRONG PEDAL PULSES;SKIN INTACT;TELE MONITORING IN PLACE;#22G TO LAC REMOVED DUE TO LEAKING WITH CATHETER INTACT;#22G TO RAC FLUSHED AND PATENT AND NS RESTARTED AT 100ML/HR;ABX HUNG AT THIS TIME;TELE MONTIORING IN PLACE;NICOTINE PATCH APPLIED TO RIGHT SHOULDER;PT DENIES ANY ADDITIONAL NEEDS AND IS ENCOURAGED TO CALL FOR ASSISTANCE IF NEEDED;FALL PRECAUTIONS REMAIN IN PLACE WITH CALL LIGHT IN REACH;FREQUENT ROUNDS MADE.
[2022-12-28 10:50] VITALS: BP 156/76
--- NOTE | 2022-12-28 11:40 | NUR ---
PT RESTING AT BEDSIDE EATING LUNCH;RESPIRATIONS EVEN AND UNLABORED;TELE MONITORING IN PLACE;IV SITE PATENT;PT DENIES ANY CURRENT NEEDS;PT EDUCATED ON PLANS FOR D/C HOME AND VERBALIZES UNDERSTANDING;PT ENCOURAGED TO CALL FOR ASSISTANCE IF NEEDED;FALL PRECAUTIONS IN PLACE WITH CALL LIGHT IN REACH;FREQUENT ROUNDS MADE.
[2022-12-28] MEDS ORDERED: AMOX/K CLAV875 M1 PO (11:53)
[2022-12-28] MEDS ORDERED: PREDNISONE10 MG PO (11:54)
--- NOTE | 2022-12-28 13:10 | NUR ---
PT AND SIGNIFICANT OTHER EDUCATED ON DISCHARGE INSTRUCTIONS.PT INSTRUCTED TO F/U WITH PCP, TAKE MEDICATION PRESCRIBED. RX FOR PREDNISONE PROVIDED;IV SITE REMOVED WITH CATHETER INTACT AND TELE MONITORING D/C;PT DENIES ANY ADDITIONAL NEEDS;WC TO BE PROVIDED FOR D/C HOME;SIGNIFICANT OTHER TO TRANSPORT PT HOME
--- NOTE | 2022-12-28 13:17 | NUR ---
Discharge instructions given. Patient verbalizes understanding of same. Discharged in stable condition via Wheelchair to Home with significant other. All belongings sent with pt. PT TRANSPORTED TO [facility] VIA ACCOMPANIED BY AUDELIA KENYON.ALL BELONGINGS LEFT WITH PT AT THIS TIME.SIGNIFICANT OTHER TO TRANSPORT PT HOME.
[2023-01-04] MEDS ORDERED: ALBUTEROL SULFA IN (11:39)
[2023-01-04] MEDS ORDERED: FLEXERIL5 M1 PO (11:39)
[2023-01-04] MEDS ORDERED: PROTONIX40 M2 PO (11:39)
[2023-01-04] MEDS ORDERED: IPRATROPIU0.5 MG/3 M IN (11:39)
== END 2022-12-28 13:15 | disposition home or self-care (01) ==
LOC: ED 09:58 → ED-I 11:00 → ED 12:20 → MS2 12:21
PROVIDERS: Family Medicine; Nurse Practitioner Family; Student in an Organized Health Care Education/Training Program; ADMIT Student in an Organized Health Care Education/Training Program; ATTEND Student in an Organized Health Care Education/Training Program
DX: J44.1 Chronic obstructive pulmonary disease with (acute) exacerbation (principal); J18.9 Pneumonia, unspecified organism; J44.0 Chronic obstructive pulmonary disease with (acute) lower respiratory infection; K92.1 Melena; R21 Rash and other nonspecific skin eruption; F10.10 Alcohol abuse, uncomplicated; F17.200 Nicotine dependence, unspecified, uncomplicated; Z20.822 Contact with and (suspected) exposure to COVID-19
CPT/HCPCS: S0164